=== PATIENT | male | born 1965 | race Caucasian/White ===

== ENCOUNTER 2017-07-23 05:56 | Inpatient (IN) | payer BC ==
[~2017-07-23] VITALS: Ht 177.8 cm; Wt 70.0 kg
[~2017-07-23 05:56] MED LIST: ATORVASTATIN CA20 MG PO; AZITHROMYCIN250 MG PO; BYSTOLIC5 MG PO; LOPRESSOR25 MG PO; Milk Of Magnesia,MOM PO; NAPROXEN500 MG PO; PROTONIX40 MG PO; Senokot,Sennagen PO; TYLENOL REGULA325 MG PO; ZYRTEC10 M3 PO; oxyCODONE PO
[2017-07-23 06:41] LABS: BASOPHIL (%) 0.2 % (0-1); EOSINOPHIL (%) 1.3 % (0-5); EOSINOPHIL COUNT 0.2 K/uL (0-0.3); HEMATOCRIT 33.4 % (38.0-50.0); HEMOGLOBIN 10.8 G/DL (12.5-16.6); IMMATURE GRANULOCYTE (%) 0.3 % (0.0-0.7); LYMPHOCYTE (%) 5.7 % (15-42); LYMPHOCYTE COUNT 0.9 K/uL (1.0-2.8); MCH 28.1 PG (29.0-34.0); MCHC 32.3 G/DL (30.0-36.0); MCV 86.8 FL (86-99); MONOCYTE (%) 5.8 % (3-12); MONOCYTE COUNT 0.9 K/uL (0-0.8); NEUTROPHIL (%) 86.7 % (45-76); RBC DIS.WIDTH-CV 13.9 % (11.8-14.6); RBC DIS.WIDTH-SD 43.7 % (39-53); RED BLOOD COUNT 3.85 M/uL (4.00-5.50); WHITE BLOOD COUNT 14.9 K/uL (4.1-10.2)
[2017-07-23 06:49] LABS: INTER. NORMALIZED RATIO 1.3
[2017-07-23 06:51] LABS: PLATELET COUNT 292 K/uL (156-360)
[2017-07-23 06:52] LABS: PTT 28.1 SEC (25-37)
[2017-07-23 06:54] LABS: ALBUMIN 3.9 g/dL (3.2-4.8); CHLORIDE 106 mEq/L (99-109); POTASSIUM 4.3 mEq/L (3.7-5.4); SODIUM 139 mEq/L (136-147)
[2017-07-23 06:55] LABS: GLUCOSE 125 mg/dL (70-99)
[2017-07-23 06:57] LABS: TOTAL BILIRUBIN 0.8 mg/dL (0.0-1.0)
[2017-07-23 06:59] LABS: ALKALINE PHOSPHATASE 88 IU/L (3-129); GFR ESTIMATE (CALCULATED) > 59 mL/min/ (58.99-99999)
[2017-07-23 07:00] LABS: UREA NITROGEN (BUN) 19 mg/dL (9-23)
[2017-07-23 07:01] LABS: AST (GOT) 23 IU/L (2-34)
[2017-07-23 07:02] LABS: ALT (GPT) 48 IU/L (3-49)
[2017-07-23 07:03] LABS: TROP-I INTERPRETATION NEGATIVE; TROPONIN-I < 0.01 ng/mL (0.0-0.30)
[2017-07-23] MEDS ORDERED: LO-DOSE ASPIRIN81 M2 PO (09:11)
[2017-07-23] MEDS ORDERED: OXAYDO5 MG PO (09:11)
[2017-07-23] MEDS ORDERED: PATANOL OP100 DROP/5 BOTH EYES (09:11)
[2017-07-23] MEDS ORDERED: AMBIEN10 MG PO (09:12)
[2017-07-23] MEDS ORDERED: LOPRESSOR25 MG PO (09:13)
[2017-07-23 12:07] VITALS: BP 126/80
[2017-07-23 14:03] LABS: TROP-I INTERPRETATION NEGATIVE; TROPONIN-I < 0.01 ng/mL (0.0-0.30)
[2017-07-23 15:40] LABS: APPEARANCE SL.HAZY ((CLEAR)); BILIRUBIN NEGATIVE; BLOOD NEGATIVE; COLOR AMBER ((YELLOW)); GLUCOSE (STRIP) NEGATIVE; KETONES NEGATIVE; LEUKOCYTES NEGATIVE; NITRITE NEGATIVE; PROTEIN (STRIP) 30; UROBILINOGEN 0.2 MG/DL (0.2-1.0)
[2017-07-23 15:42] LABS: SPECIFIC GRAVITY > 1.060 (1.000-1.030)
[2017-07-23 16:20] VITALS: BP 119/72
[2017-07-23 16:40] LABS: BACTERIA RARE /HPF; EPITHELIAL CELLS RARE /HPF; MUCUS NONE SEEN /LPF; RED BLOOD CELLS NONE SEEN /HPF (0-5); WHITE BLOOD CELLS NONE SEEN /HPF (0-5)
[2017-07-23 19:13] LABS: TROP-I INTERPRETATION NEGATIVE; TROPONIN-I < 0.01 ng/mL (0.0-0.30)
[2017-07-23 20:00] VITALS: BP 116/65
[2017-07-24] VITALS: BP 100/57
[2017-07-24 03:44] VITALS: BP 109/65
[2017-07-24 06:27] LABS: HEMATOCRIT 27.7 % (38.0-50.0); HEMOGLOBIN 8.8 G/DL (12.5-16.6); MCH 27.1 PG (29.0-34.0); MCHC 31.8 G/DL (30.0-36.0); MCV 85.2 FL (86-99); PLATELET COUNT 260 K/uL (156-360); RBC DIS.WIDTH-CV 13.5 % (11.8-14.6); RBC DIS.WIDTH-SD 42.5 % (39-53); RED BLOOD COUNT 3.25 M/uL (4.00-5.50); WHITE BLOOD COUNT 13.7 K/uL (4.1-10.2)
[2017-07-24 06:47] LABS: CHLORIDE 107 MEQ/L (99-109); CREATININE 0.8 MG/DL (0.6-1.3); GFR ESTIMATE (CALCULATED) > 59 mL/min/ (58.99-99999); GLUCOSE 130 mg/dL (70-99); POTASSIUM 4.6 MEQ/L (3.7-5.4); SODIUM 138 MEQ/L (136-147); UREA NITROGEN (BUN) 19 mg/dL (9-23)
[2017-07-24] MEDS ORDERED: Colchicine,Colcrys PO (09:11)
[2017-07-24] MEDS ORDERED: LOPRESSOR25 MG PO (09:11)
[2017-07-24 10:19] VITALS: BP 102/62
[2017-07-25 10:14] LABS: FERRITIN 188 NG/ML (22-322)
[2017-07-25 10:17] LABS: IRON 13 MCG/DL (35-150)
== END 2017-07-24 10:35 | disposition home or self-care (01) | DRG 315 ==
LOC: EME 05:56 → EDOF 08:49 → ENRESERV 08:52 → 5SOUTH 11:30
PROVIDERS: Emergency Medicine; Internal Medicine; Internal Medicine Cardiovascular Disease
DX: I24.1 Dressler's syndrome (principal); J90 Pleural effusion, not elsewhere classified; I80.9 Phlebitis and thrombophlebitis of unspecified site; I31.3 Pericardial effusion (noninflammatory); Q23.1 Congenital insufficiency of aortic valve; I25.10 Atherosclerotic heart disease of native coronary artery without angina pectoris; I71.2 Thoracic aortic aneurysm, without rupture; I10 Essential (primary) hypertension; D64.9 Anemia, unspecified; E78.5 Hyperlipidemia, unspecified; D72.829 Elevated white blood cell count, unspecified; Z95.2 Presence of prosthetic heart valve; Z79.82 Long term (current) use of aspirin
CPT/HCPCS: 71045; 71275; 80048; 80053; 81003; 82728; 83540; 83605; 84484; 85025; 85027; 85379; 85610; 85730; 87040; 93005; 93306; 99281; 99285; J1650; J1885; J2270; J2920; J3010; J7030